=== PATIENT | male | born 1965 | race Caucasian/White ===

== ENCOUNTER → 2018-09-20 10:01 | Outpatient (CLI) | payer OTHER, SELFPAY ==
[2018-09-20 10:07] LABS: Microscopic, Urine URINE MICROSCOPIC (MICROSCOPIC)
[2018-09-20 10:29] LABS: Basophils # 0.1 K/mm3 (0-0.2); Basophils % 0.8 % (0.1-2.0); Eosinophils # 0.2 K/mm3 (0.0-0.4); Eosinophils % 3.8 % (0.1-12.0); Hematocrit 45.3 % (42.0-52.0); Hemoglobin 14.9 g/dL (14.1-18.0); Lymphocytes # 1.8 K/mm3 (0.7-4.5); Lymphocytes % 30.4 % (10-50); Mean Corpuscular HGB Conc 32.9 g/dL (31.8-35.4); Mean Corpuscular Hemoglobin 31.9 pg (27.0-31.2); Mean Corpuscular Volume 96.9 fl (80-94); Mean Platelet Volume 8.7 fl (7.4-10.4); Monocytes # 0.3 K/mm3 (0.1-1.0); Monocytes % 5.5 % (1.7-9.3); Neutrophils # 3.6 K/mm3 (1.8-7.8); Neutrophils % 59.5 % (37.0-80.0); Platelet Count 214 K/mm3 (142-424); Red Blood Count 4.67 M/mm3 (4.60-6.20); Red Cell Distribution Width 13.2 % (11.5-17.5)
[2018-09-20 10:40] LABS: Appearance,Urine CLEAR (Clear); Bilirubin,Urine Negative (Negative); Blood, Urine Negative (Negative); Color,Urine YELLOW (Yellow); Glucose,Urine (UA) Negative (Negative); Ketones,Urine Negative (Negative); Leukocyte Esterase,Urine Negative (Negative); Nitrate,Urine Negative (Negative); Protein,Urine Negative (Negative); Urobilinogen,Urine 0.2 EU/dl (0.2)
[2018-09-20 10:51] LABS: WBC,Urine Occasional #/hpf (0-3)
[2018-09-20 11:29] LABS: Alanine Aminotransferase 27 U/L (12-78); Albumin Level 3.7 gm/dL (3.4-5.0); Albumin/Globulin Ratio 1.1 (1.1-1.8); Alkaline Phosphatase 85 U/L (46-116); Anion Gap 12.9 mEq/L (5-15); Aspartate Amino Transferase 14 U/L (15-37); Bilirubin,Total 0.3 mg/dL (0.2-1.0); Blood Urea Nitrogen 12 mg/dL (7-18); Calcium 9.5 mg/dL (8.5-10.1); Carbon Dioxide 30 mmol/L (21.0-32.0); Chloride 103 mmol/L (98-107); Chol/HDL Ratio 5.6 (1-3.5); Cholesterol 185 mg/dL (140-200); Creatinine,Serum 1.17 mg/dL (0.70-1.30); Estimated Glomerular Filt Rate 65 ml/min (>60); GFR (African American) 79 ML/MIN (>60); Globulin 3.4 gm/dl (1.3-3.2); Glucose 116 mg/dL (74-106); HDL Cholesterol 33 mg/dL (27-67); LDL Cholesterol 105 mg/dL (0-130); Potassium 4.9 mmoL/L (3.5-5.1); Prostate Specific Ag Screen 0.3 ng/mL (0.0-4.0); Sodium 141 mmol/L (136-145); Thyroid Stimulating Hormone 2.87 uIU/ml (0.358-3.740); Total Protein,Serum 7.1 gm/dL (6.4-8.2); Triglycerides 233 mg/dL (30-200); VLDL Cholesterol 47 mg/dL (0-40)
[2018-09-20 11:35] LABS: Hemoglobin A1C 5.9 % (0.0-7.0)
== END ==
PROVIDERS: Visit Provider Internal Medicine
DX: I50.9 Heart failure, unspecified (principal); E78.5 Hyperlipidemia, unspecified; R73.9 Hyperglycemia, unspecified; R53.83 Other fatigue; Z12.5 Encounter for screening for malignant neoplasm of prostate
CPT/HCPCS: 36415; 80053; 80061; 81001; 83036; 84443; 85025; G0103

== ENCOUNTER 2019-12-13 08:50 | Emergency (ER) | payer MEDICAID, SELFPAY ==
[2019-12-13 08:59] VITALS: BP 141/87; PULSE 67; RESP 18; TEMP 36.8; O2SAT 98; BMI 38.7
--- NOTE | 2019-12-13 09:37 | HMH.EDGENADL ---
ED Disposition Clinical Impression: Cervicalgia Disposition: Home, Self-Care Condition on Discharge: Good Instructions: DI for Acute Pain -- Adult Additional Instructions: Please take your medicines as prescribed. If condition does fails to improve after 7 days please follow-up with your primary care. Prescriptions: Tizanidine HCl [Zanaflex 4mg tablet] 4 mg PO TID 10 Days #30 tab Transmission Status: Pending to [id number] Referrals: Nicola Medina [Primary Care Provider] - - Critical Care Critical Care Time: No Attestation: On 12/13/19, the high probability of a clinically significant, sudden or life threatening deterioration of the following system(s) required my full and direct attention, intervention and personal management. The time I documented below is in addition to time spent performing reported procedures but includes the following listed in this critical care notation. Medical Decision Making - Medical Records Medical records reviewed: Yes: I reviewed the patient's medical records. - Shaquille Inquiry Pt receiving controlled substance: No Vital Signs: 12/13/19 08:59 Temperature 98.3 F Temperature Source Oral Pulse Rate [Right Radial] 67 Respiratory Rate 18 Blood Pressure [Right Arm] 141/87 H Blood Pressure Mean [Right Arm] 105 Blood Pressure Source [Right Arm] Automatic Cuff Blood Pressure Position [Right Arm] Sitting 02 Sat by Pulse Oximetry 98 Oxygen Delivery Method Room Air Orders (Tests/Meds): ED MEDICATIONS Discontinued Medications Generic Name Dose Route Start Last Admin Trade Name Freq PRN Reason Stop Dose Admin Ketorolac Tromethamine 60 mg 12/13/19 09:17 12/13/19 09:20 Toradol 30mg/Ml Vial IM 12/13/19 09:18 60 mg ONCE ONE Administration General Adult HPI - General Chief complaint: PAIN Stated complaint: left neck pain Time Seen by Provider: 12/13/19 09:30 Mode of Arrival: Ambulatory Source of Information: Patient Limitations: No Limitations Description of Symptoms (Recalled from ER Triage Doc. by RN): PT C/O LT SIDE NECK PAIN. PT STATES THAT HE SLEEPS SITTING UP TO EASE HIS BREATHING AND HE WOKE UP THIS AM WITH A KINK IN THE LT SIDE OF HIS NECK. - History of Present Illness HPI narrative: 54-year-old gentleman presents the ED after awaking this morning with a sore neck and unable to have full range of motion. He states he slept awkward last night in a chair and when he awoke this morning he had a lot of pain and the neck, radiating down to his left shoulder. He is able to passively move his neck or his head to the right but unable to do a chin to chest or have extension. Patient denies any fevers shakes or chills. Patient does state that when he moves his head to the left that it does trigger severe pain. He does rate this pain at 6 out of 10. And classifies it as sharp in nature. Alleviating factors include rest. Also include no flexion of the neck or left lateral movement. Exacerbating factors are incrementally getting these movements. - Related Data Previous Rx's Medication Instructions Recorded Tizanidine HCl [Zanaflex 4mg 4 mg PO TID 10 Days #30 tab 12/13/19 tablet] Allergies Allergy/AdvReac Type Severity Reaction Status Date / Time No Known Allergies Allergy Verified 12/13/19 09:03 [facility] History - Hepatitis A Screen Drug use history?: No High risk sexual behaviors?: No History of sexually transmitted infection?: No Currently employed?: No Childcare worker?: No Do you have indoor plumbing?: Yes Do you have electricity?: Yes Attestation statement:: This patient has been screened for Hepatitis A risk factors. I have reviewed the patient's past medical history: Yes 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: Denies:: Diabetes Mellitus Type 1, Diabetes Mellitus Type 2 - Social History Smoking Status: Former smoker Tobacco Type: cigarettes Alcohol Intake: never Occupational Status: retired ROS Obtained: Yes All systems revi
[2019-12-13 09:53] VITALS: BP 129/89; PULSE 87; RESP 16; TEMP 36.9; O2SAT 99
== END 2019-12-13 09:54 | disposition home or self-care (01) ==
PROVIDERS: Emergency Provider Family Medicine; PCP Internal Medicine
DX: M54.2 Cervicalgia (principal); I25.2 Old myocardial infarction; Z87.891 Personal history of nicotine dependence; Z79.899 Other long term (current) drug therapy
CPT/HCPCS: 96372; 99281

== ENCOUNTER → 2020-11-08 11:45 | Outpatient (CLI) | payer MEDICARE, MEDICAID, SELFPAY | PROVIDERS: PCP Internal Medicine; Visit Provider Internal Medicine Gastroenterology | DX: Z20.822 Contact with and (suspected) exposure to COVID-19 (principal); U07.1 COVID-19 | CPT/HCPCS: U0003 ==

== ENCOUNTER 2021-05-17 10:14 | Emergency (ER) | payer MEDICARE, MEDICAID, SELFPAY ==
[2021-05-17 10:32] VITALS: BP 123/44; RESP 16; TEMP 36.9; O2SAT 96; BMI 39.9
[2021-05-17 11:10] VITALS: BP 123/44; PULSE 65; RESP 16; TEMP 36.9; O2SAT 96; BMI 39.9
--- NOTE | 2021-05-17 11:25 | HMH.EDUTC ---
[facility] Disposition Clinical Impression: Fatigue, Nausea Disposition: Home, Self-Care Condition on Discharge: Good Instructions: Preventing the Spread of Coronavirus Discharge Instructions Additional Instructions: You have been tested for COVID19. Please isolate yourself as if you are positive until test results received. Try very hard to stay hydrated - sips of water, gatorade/pedialyte, ice chips, popsicles, jello, applesauce, watermelon, etc Prescriptions: ondansetron HCL [Ondansetron 8mg tab*] 8 mg PO TIDP PRN 10 Days #30 tab PRN Reason: Nausea Transmission Status: Pending to [id number] Referrals: Nicola Medina [Primary Care Provider] - Time of Disposition: 11:36 Medical Decision Making - Shaquille Inquiry Pt receiving controlled substance: No Vital Signs: 05/17/21 10:32 05/17/21 11:10 Temperature 98.4 F 98.4 F Temperature Source Oral Oral Pulse Rate [Right Brachial] 76 Respiratory Rate 16 16 Blood Pressure [Right Arm] 123/44 L 123/44 L Blood Pressure Mean [Right Arm] 70 70 Blood Pressure Source [Right Arm] Automatic Cuff Automatic Cuff Blood Pressure Position [Right Arm] Sitting Sitting 02 Sat by Pulse Oximetry 96 96 Oxygen Delivery Method Room Air Room Air Orders (Tests/Meds): ORDERS Category Date Time Status Covid-19 Nasal PCR ([facility]) Routine Lab 05/17/21 11:25 Ordered [facility] HPI - General Stated complaint: covid symptoms Time Seen by Provider: 05/17/21 11:25 Mode of Arrival: Ambulatory Source of Information: Patient Limitations: No Limitations Description of Symptoms (Recalled from Triage Doc. by RN): PATIENT C/O DIZZINESS, NAUSEA, AND WEAKNESS HEENT Symptoms (Recalled from RN notes): No Resp Symptoms (Recalled from RN notes): No Skin Symptoms (Recalled from RN notes): No MS Symptoms (Recalled from RN notes): No Functional Status (Recalled from RN notes): WNL - History of Present Illness Provider Complaint: Patient has had fatigue, weakness, nausea, dizziness for 3-4 days. No fever. Muscles feel very tired and crampy. No vomiting or diarrhea. No cough or congestion. States his recently had bronchitis. Onset (ago): day(s) (4) Location: abdomen Consistency: constant Relieving factors: none Exacerbating factors: none Associated symptoms: nausea/vomiting, weakness Treatments prior to arrival: none - Related Data Previous Rx's Medication Instructions Recorded Tizanidine HCl [Zanaflex 4mg 4 mg PO TID 10 Days #30 tab 12/13/19 tablet] ondansetron HCL [Ondansetron 8mg 8 mg PO TIDP PRN 10 Days #30 tab 05/17/21 tab*] Allergies Allergy/AdvReac Type Severity Reaction Status Date / Time No Known Allergies Allergy Verified 12/13/19 09:03 - Worker's Comp Is this a Worker's Comp case?: No [facility] History - Hepatitis A Screen Drug use history?: No High risk sexual behaviors?: No History of sexually transmitted infection?: No Currently employed?: No Childcare worker?: No Do you have indoor plumbing?: Yes Do you have electricity?: Yes Attestation statement:: This patient has been screened for Hepatitis A risk factors. I have reviewed the patient's past medical history: Yes 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: Denies:: Diabetes Mellitus Type 1, Diabetes Mellitus Type 2 - Social History Smoking Status: Former smoker Tobacco Type: cigarettes Alcohol Intake: never Occupational Status: retired ROS Obtained: Yes All systems reviewed & no additional complaints - Constitutional Constitutional: Reports body ache, Reports fatigue, Reports poor appetite, Reports malaise, Reports weakness - Neurologic Neurologic: Reports dizziness Physical Exam - General General appearance: alert, in no apparent distress - Head Head exam: normocephalic - Eye Eye exam: Present: PERRL - ENT ENT exam: Present: normal exam, normal oropharynx, TM's normal bilaterally - Neck Neck exam: Absent: lymphadenopathy - Chest Chest inspection: Present: normal inspection, symmetri
[2021-05-17 11:37] VITALS: BP 123/44; PULSE 65; RESP 16; TEMP 36.9; O2SAT 96
== END 2021-05-17 11:43 | disposition home or self-care (01) ==
LOC: ER 10:32 → UTC 10:33
PROVIDERS: Emergency Provider Physician Assistant; PCP Internal Medicine
DX: R53.83 Other fatigue (principal); R11.0 Nausea; R42 Dizziness and giddiness
CPT/HCPCS: 99202; C9803; G0463; U0003; U0005

== ENCOUNTER → 2021-10-30 13:50 | Outpatient (CLI) | payer MEDICARE, MEDICAID, SELFPAY ==
[2021-10-30 14:50] LABS: Chloride 97 mmol/L (98-107)
[2021-10-30 14:51] LABS: Potassium 4.3 mmoL/L (3.5-5.1); Sodium 132 mmol/L (136-145)
[2021-10-30 14:53] LABS: Blood Urea Nitrogen 14 mg/dl (9-20); Estimated Glomerular Filt Rate 78 ml/min (>60); GFR (African American) 94 ML/MIN (>60)
[2021-10-30 14:54] LABS: Anion Gap 10.3 mEq/L (5-15); Calcium 8.8 mg/dl (8.4-10.2); Carbon Dioxide 29 mmol/L (22.0-30.0); Glucose 117 mg/dl (74-100)
[2021-10-30 15:03] LABS: NT Pro Brain Natriuretic Pep. 171 pg/mL (0-125)
== END ==
PROVIDERS: Visit Provider Internal Medicine
DX: I50.22 Chronic systolic (congestive) heart failure (principal)
CPT/HCPCS: 36415; 80048; 83880

== ENCOUNTER 2023-01-16 15:25 | Emergency (ER) | payer MEDICARE, MEDICAID, SELFPAY ==
[2023-01-16 15:40] VITALS: BP 141/75; PULSE 72; RESP 18; TEMP 37; O2SAT 98; BMI 38.7
--- NOTE | 2023-01-16 16:08 | EXP.UTC ---
Discharge Plan Disposition Patient Disposition: Home, Self-Care Condition: Good Prescriptions Prescriptions: New benzonatate 100 mg capsule 100 mg PO BID PRN (Reason: cough) Qty: 10 0RF cephalexin [cephalexin] 500 mg tablet 500 mg PO BID 7 Days Qty: 14 0RF fluticasone propionate [fluticasone propionate] 50 mcg/actuation spray,suspension 1 spray intranasal DAILY Qty: 9.9 0RF No Action spironolactone 25 mg tablet 25 mg PO DAILY Label Comments: TAKE 1 TABLET BY MOUTH ONCE DAILY Jardiance 10 mg tablet 10 mg PO DAILY Entresto 97-103 mg tablet 1 tab PO DAILY Referrals Follow up/Referrals: Nicola Medina [Primary Care Provider] - See instructions Activity Restrictions/Add. Instructions Additional Instructions/Restrictions: Start antibiotic patient to take as ordered for a full length of time even if you feel better. Sinus infections do not get better overnight. It may take 2-3 days to notice much improvement so be sure to use conservative measures as discussed for symptoms. Flonase 1 spray each nostril daily to help with nasal congestion, sinus and ear pressure/information Increase fluids Humidifier/vaporizer as needed Tylenol and ibuprofen as needed for fever or pain. If symptoms do not improve or get worse return or be seen in the ER Follow-up with primary care this week Clinical Impressions Clinical Impression: Acute maxillary sinusitis, Cough Instructions Patient Instructions: DI for Sinusitis, Cough Discharge ED Provider: Zechariah ([facility])Asya [facility] HPI General Stated complaint: cough, [place] Mode of Arrival: Ambulatory Source of Information: Patient Limitations: No Limitations Time Seen by Provider: 01/16/23 16:08 Description of Symptoms (Recalled from Triage Doc. by RN): productive coughing HEENT Symptoms (Recalled from RN notes): Yes Resp Symptoms (Recalled from RN notes): No Skin Symptoms (Recalled from RN notes): No MS Symptoms (Recalled from RN notes): No Functional Status (Recalled from RN notes): n/a History of Present Illness Provider Complaint: 57 yr old male presents for coughing up thick yellow green sputum, nasal congestion and sinus pressure for 1 week Related Data Home Medications Medication Instructions Recorded Confirmed empagliflozin 10 mg tablet 10 mg PO DAILY . 01/16/23 01/16/23 (Jardiance) sacubitril 97 mg-valsartan 103 mg 1 tab PO DAILY . 01/16/23 01/16/23 tablet (Entresto) spironolactone 25 mg tablet 25 mg PO DAILY . 01/16/23 01/16/23 Previous Rx's Medication Instructions Recorded benzonatate 100 mg capsule 100 mg PO BID PRN cough #10 caps 01/16/23 cephalexin 500 mg tablet 500 mg PO BID 7 days #14 tabs 01/16/23 fluticasone propionate 50 1 spray intranasal DAILY #9.9 mL 01/16/23 mcg/actuation nasal spray,suspension Allergies Allergy/AdvReac Type Severity Reaction Status Date / Time No Known Allergies Allergy Verified 01/16/23 16:11 Worker's Comp Is this a Worker's Comp case?: No [facility] Disclaimer: The information contained in this section may have been updated after the patient was seen, as this information can be updated by other users. 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 , BAR PILOT) Diabetes mellitus type 2, diet-controlled Heart attack High cholesterol Hypertension Surgical History , BAR PILOT) History of open heart surgery Social History , BAR PILOT) Smoking Status: Former smoker alcohol intake: never current occupational status: retired Travel in the last 8 weeks: None ROS Obtained: Yes All systems reviewed & no additional complaints except as documented Constitutional Constitutional: Reports system reviewed and no additional complaints, except as documented and Reports as per HPI Eyes Eyes: Reports system reviewed and no additional complaints, except as docu
[2023-01-16 16:20] VITALS: BP 141/75; PULSE 72; RESP 18; TEMP 37; O2SAT 98
== END 2023-01-16 16:20 | disposition home or self-care (01) ==
PROVIDERS: Emergency Provider Nurse Practitioner Family; PCP Internal Medicine
DX: J01.90 Acute sinusitis, unspecified (principal); R05.1 Acute cough; E11.9 Type 2 diabetes mellitus without complications; I10 Essential (primary) hypertension; E78.5 Hyperlipidemia, unspecified; Z87.891 Personal history of nicotine dependence
CPT/HCPCS: 99212; 99214; G0463

== ENCOUNTER 2024-10-21 20:28 | Emergency (ER) | payer MEDICARE, SELFPAY ==
[2024-10-21 20:39] VITALS: BP 165/80; PULSE 78; RESP 20; TEMP 36.4; O2SAT 99; BMI 40.8
--- NOTE | 2024-10-21 20:42 | XR_ITS ---
PROCEDURE INFORMATION: Exam: XR Left Femur Exam date and time: 10/21/2024 8:44 PM Age: 59 years old Clinical indication: Pain; Hip; Left; Additional info: Fall, left hip/femur pain TECHNIQUE: Imaging protocol: Radiologic exam of the left femur. Views: 2 views. COMPARISON: CR XR HIP LT 2-3V W/PELVIS 10/21/2024 8:41 PM FINDINGS: Bones/joints: There is no evidence of acute fracture or dislocation. Mild degenerative changes involve the left hip joint and the femorotibial joint with mild sharpening of the tibial spines. Soft tissues: No significant soft tissue edema. No subcutaneous emphysema or radiopaque foreign bodies. No suprapatellar joint effusion. IMPRESSION: No acute posttraumatic osseous injury.
--- NOTE | 2024-10-21 20:42 | XR_ITS ---
PROCEDURE INFORMATION: Exam: XR Left Hip Exam date and time: 10/21/2024 8:41 PM Age: 59 years old Clinical indication: Injury or trauma; Fall; Blunt trauma (contusions or hematomas); Left; Hip; Additional info: Fall, left pelvic/hip pain TECHNIQUE: Imaging protocol: Radiologic exam of the left hip. Views: 2 or 3 views hip with pelvis when performed. COMPARISON: CR XR HIP LT 2-3V W/PELVIS 10/21/2024 8:41 PM FINDINGS: Bones/joints: There is no evidence of acute fracture or dislocation. Mild degenerative changes involve the hips bilaterally. The sacroiliac joints and symphysis pubis joints appear preserved. Soft tissues: No significant soft tissue edema. No subcutaneous emphysema or radiopaque foreign bodies. IMPRESSION: No acute posttraumatic osseous injury.
--- NOTE | 2024-10-21 20:43 | ED_ITS ---
Discharge Plan Disposition Patient Disposition: Home, Self-Care Condition: Good Prescriptions Prescriptions: New methocarbamol 500 mg tablet 500 mg PO Q6H PRN (Reason: Muscle Spasm) 5 Days Qty: 20 0RF No Action spironolactone 25 mg tablet 25 mg PO DAILY Patient Comments: TAKE 1 TABLET BY MOUTH ONCE DAILY Jardiance 10 mg tablet 10 mg PO DAILY Entresto 97-103 mg tablet 1 tab PO DAILY benzonatate 100 mg capsule 100 mg PO BID PRN (Reason: cough) Qty: 10 0RF cephalexin [cephalexin] 500 mg tablet 500 mg PO BID 7 Days Qty: 14 0RF fluticasone propionate [fluticasone propionate] 50 mcg/actuation spray ,suspension 1 spray intranasal DAILY Qty: 9.9 0RF Referrals Follow up/Referrals: Nicola Medina [Primary Care Provider] - See instructions Activity Restrictions/Add. Instructions Additional Instructions/Restrictions: You can take Tylenol and Robaxin to help with your pain. Follow-up with your primary care physician if symptoms do not improve. Clinical Impressions Clinical Impression: Pain in left leg, Fall Print Language Print Language: Latvian Discharge ED Provider: Juliano Nur General Adult HPI General Chief complaint: PAIN Stated complaint: AO10/21 1300 LT leg inj Time Seen by Provider: 10/21/24 20:37 Mode of Arrival: Ambulatory Source of Information: Patient Limitations: No Limitations Description of Symptoms (Recalled from ER Triage Doc. by RN): Pt states he was skating and fell doing the splints Pain now in left hip radiating down left leg Pt ambulatory History of Present Illness HPI narrative: Fritz Burton is a 59y male with a past medical history of cardiac defibrillator, [place], hypertension, hyperlipidemia, type 2 diabetes who presents to the emergency department after a fall. Patient states that he was trying to roller skate tonight for the first time in many years when he lost his balance and did the splits . He states that his right leg went backward and his left leg went forward. He denies any head trauma or loss of consciousness. He was able to get up after this with some difficulty but reports pain in his left buttock/hip and left thigh along the posterior aspect. He has been ambulatory since then. He has no other complaints or concerns at this time and denies any back pain. Related Data Home Medications ?Medication ?Instructions ?Recorded ?Confirmed empagliflozin 10 mg tablet 10 mg PO DAILY . 01/16/23 01/16/23 (Jardiance) sacubitril 97 mg-valsartan 103 mg 1 tab PO DAILY . 01/16/23 01/16/23 tablet (Entresto) spironolactone 25 mg tablet 25 mg PO DAILY . 01/16/23 01/16/23 Previous Rx's ?Medication ?Instructions ?Recorded benzonatate 100 mg capsule 100 mg PO BID PRN cough #10 caps 01/16/23 cephalexin 500 mg tablet 500 mg PO BID 7 days #14 tabs 01/16/23 fluticasone propionate 50 1 spray intranasal DAILY #9.9 mL 01/16/23 mcg/actuation nasal spray,suspension methocarbamol 500 mg tablet 500 mg PO Q6H PRN Muscle Spasm 5 10/21/24 days #20 tabs Allergies Allergy/AdvReac Type Severity Reaction Status Date / Time No Known Allergies Allergy Verified 01/16/23 16:11 [facility] Disclaimer: The information contained in this section may have been updated after the p atient was seen, as this information can be updated by other users. 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) Smoking Status: Former smoker tobacco type: cigarettes alcohol intake: never current occupational status: retired Travel in the last 8 weeks: None Have you lived/traveled outside US in past 30 days?: No Contact w/someone who lives/traveled outside US past 30 days?: No Exposure to someone with infectious disease in past 14 days?: No Do you have a fever (greater than 100.4 F or 38 C)?: No Have you tested positive for COVID-19: No Exposed to someone with COVID-19 in past 14 days?: No Do you have a sore throat?: No Do you have a cough?: No Do you have any weakness?: No Do you have any diarrhea?: No Are you experiencing any unusual bleeding?: No Do you have any muscle aches/pain?: No Do you have any abdominal pain?: No Are you experiencing loss of taste or smell?: No Other 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 Have you received the Flu Vaccine for this season: No Have you received the Pneumonia Vaccine: No ROS Obtained: Yes Systems reviewed as appropriate & no additional complaints except as documented Physical Exam General General appearance: alert and in no apparent distress Head Head exam: atraumatic Eye Eye exam: Present normal appearance ENT ENT exam: Present normal external ear exam Neck Neck exam: Present full ROM Chest Chest inspection: Present symmetric chest wall rise Respiratory Respiratory exam: Present normal lung sounds bilaterally; Absent respiratory distress Cardiovascular Cardiovascular exam: Present regular rate and normal rhythm Abdominal Exam Abdominal exam: Present soft; Absent tenderness or guarding exam: Present deferred Extremities Exam Extremities exam: Present normal inspection and other (Mild tenderness over the left lateral hip. No deformities. 5 out of 5 strength in the bilateral lower extremities.) Back Exam Back exam: Present normal inspection; Absent tenderness or vertebral tenderness Neurological Exam Neurological exam: Present alert and oriented X3 Psychiatric Psychiatric exam: Present normal affect Skin Skin exam: Present warm and dry Medical Decision Making Medical Records Screening: Per USPSTF and CDC recommendations, given the prevalence of disease in our region, it is our hospital?s policy to screen for HIV and viral Hepatitis for all patients aged 18 and over and those with ongoing risk factors. Shaquille Inquiry Pt receiving controlled substance: No Vital Signs: 10/21/24 20:39 Temperature 97.5 F L Temperature Source Oral Pulse Rate [Right Brachial] 78 Respiratory Rate 20 Blood Pressure [Right Arm] 165/80 H Blood Pressure Mean [Right Arm] 108 Blood Pressure Source [Right Arm] Automatic Cuff Blood Pressure Position [Right Arm] Supine 02 Sat by Pulse Oximetry 99 Oxygen Delivery Method Room Air Orders (Tests/Meds): ED MEDICATIONS Discontinued Medications Generic Name Dose Route Start Last Admin Trade Name Freq PRN Reason Stop Dose Admin Acetaminophen 1,000 mg 10/21/24 20:42 10/21/24 21:06 Acetaminophen 500mg Tab PO 10/21/24 20:43 1,000 mg ONCE ONE Administration ORDERS Category Date Time Status Femur XR left 2 views [XR femur LT 2V] Stat Exams 10/21/24 20:42 Completed Hip XR left minimum 2 views [XR hip LT 2-3V w/pelvis] Exams 10/21/24 20:42 Completed Stat HIV Combo Routine Lab 10/21/24 20:42 Ordered Hepatitis C Ab Qual. W/ RFX Routine Lab 10/21/24 20:42 Ordered Medical Decision Narrative: Fritz Burton is a 59y male with a past medical history of cardiac defibrillator, [place], hypertension, hyperlipidemia, type 2 diabetes who presents to the emergency department after a fall. Patient states that he was trying to roller skate tonight for the first time in many years when he lost his balance and did the splits . He states that his right leg went backward and his left leg went forward. He denies any head trauma or loss of consciousness. He was able to get up after this with some difficulty but reports pain in his left buttock/hip and left thigh along the posterior aspect. He has been ambulatory since then. He has no other complaints or concerns at this time and denies any back pain. On arrival, patient is hypertensive with blood pressure 165/80 but hemodynamically stable. Heart rate within normal limits. Afebrile. Breathing comfortably on room air with oxygen saturation 99% SpO2. Physical exam, stated above, revealed overall well-appearing male in no distress. He ambulated into the emergency department without difficulty. He has some mild tenderness over the left lateral hip but has 5 out of 5 strength in the bilateral lower extremities. He has no tenderness or step-offs in the midline lumbar spine. Differential diagnosis includes, but is not limited to: Fracture, muscle strain, contusion, disc herniation, sciatica, among others. Workup in the emergency department included: Pelvis x-ray, left hip x-ray, left femur x-ray. Will treat patient's pain with 1000 mg of Tylenol. X-ray imaging was interpreted by me personally and demonstrated no acute fracture or dislocation. See radiology report for details Is felt the patient symptomatology is most consistent with a muscle strain. He was encouraged to take Tylenol at home and is being sent with a prescription for Robaxin. He was instructed to follow-up with his primary care physician. He was instructed to continue stretching and using the muscle to avoid prolonged soreness. All questions were answered. He was then discharged from the emergency department in stable condition. Critical Care Critical Care Time Critical Care Time: No
--- NOTE | 2024-10-21 20:44 | PC.NURSE ---
Pt awake alert and oriented x4 Skin pink warm and dry Resp full and easy Gait steady but guarded due to pain. Speech clear and appropriate No obvious deformity on left leg Pedal pulses strong and equal Report given to Dayami GUTIERREZ
--- NOTE | 2024-10-21 20:54 | PC.NURSE ---
Pt ambulatory to xray
[2024-10-21] MEDS: ACETAMINOPHEN 500MG TAB 1000 MG PO (21:06)
[2024-10-21 23:03] VITALS: BP 116/63; PULSE 64; RESP 20; TEMP 36.9; O2SAT 94
== END 2024-10-21 23:06 | disposition home or self-care (01) ==
PROVIDERS: Emergency Provider Student in an Organized Health Care Education/Training Program; PCP Internal Medicine
DX: M79.605 Pain in left leg (principal); W19.XXXA Unspecified fall, initial encounter
CPT/HCPCS: 73502; 73552; 99284